=== PATIENT | male | born 1960 | race Hispanic/Latino ===

== ENCOUNTER 2018-11-26 06:20 | Day surgery (SDC) | payer OTHER ==
[2018-11-24 08:08] VITALS: BMI 32.2
[2018-11-26 06:58] LABS: BASO # 0.02 K/mm3 (0.0-2.0); BASO % 0.4 % (0.0-3.0); EOS # 0.1 (0.0-0.7); EOS % 2.4 % (1.5-5.0); GRAN # 2.53 (1.4-6.5); GRAN % 47.6 % (50.0-68.0); HEMOGLOBIN 15.4 g/dL (14.0-18.0); LYMPH # 2.3 (1.2-3.4); LYMPH % 43.2 % (22.0-35.0); MEAN CELL VOLUME 87.3 fl (80.0-105.0); MEAN CORPUSCULAR HEMOGLOBIN 28.7 pg (25.0-35.0); MEAN CORPUSCULAR HGB CONC 32.8 g/dl (31.0-37.0); MEAN PLATELET VOLUME 10.6 fl (7.0-11.0); MONO # 0.3 (0.1-0.6); MONO % 6.4 % (1.0-6.0); RBC 5.37 10^6/uL (3.5-6.1); RED CELL DISTRIBUTION WIDTH 13.7 % (11.5-14.5); WHITE BLOOD COUNT 5.3 10^3/uL (4.5-11.0)
[2018-11-26 07:15] LABS: INR 1.05; PARTIAL THROMBOPLASTIN TIME 38.2 Seconds (26.9-38.3); PROTHROMBIN TIME 11.9 SECONDS (9.4-12.5)
[2018-11-26 07:31] LABS: BLOOD UREA NITROGEN 17 mg/dL (7-21); GFR NON-AFRICAN AMERICAN > 60; HDL CHOLESTEROL 42 mg/dL (29-60)
[2018-11-26 07:32] VITALS: O2SAT 99
[2018-11-26 07:41] LABS: LDL CHOLESTEROL 84 mg/dL (0-129)
[2018-11-26] MEDS ORDERED: Verapamil 2 ML ONE (08:08)
[2018-11-26] MEDS ORDERED: Iodixanol 320 MG/ML 200 ML BOTTLE IV ONE (08:08)
[2018-11-26] MEDS ORDERED: Lidocaine 2% Inj (20ml) ONE (08:08)
[2018-11-26] MEDS ORDERED: Adenosine 90 mg/30mL IV ONE (08:08)
[2018-11-26] MEDS ORDERED: Nitroglycerin 50mg in D5W 50 MG/250 ML BOTTLE IV ONE (08:09)
[2018-11-26] MEDS ORDERED: Midazolam 2 MG/2 ML VIAL ONE ×3 (08:36→08:52)
[2018-11-26] MEDS ORDERED: Sodium Chloride 0.9% 1,000 ML IV SCH (09:15)
[2018-11-26] MEDS ORDERED: A C T ELECTRONICS XX ONE (10:42)
--- NOTE | 2018-11-26 11:10 | CARDCATH ---
PROCEDURE DATE: 11/26/2018 INDICATION: Solomon Bradshaw is a 58-year-old male who presented on 10/24/2018 to [facility] with acute inferior wall VA and underwent angioplasty and stenting with 5 drug-eluting stents, who was noted to have high-grade LAD stenosis, and the patient have intermittent bouts of . He was brought to the medical lab tech instructor for further evaluation and treatment. PROCEDURE PERFORMED: Left heart catheterization with selective left and right coronary angiogram, left ventriculogram, PTCA stenting of mid LAD, 80% stenosis, deployment of 4.0 x 18 Tha drug-eluting stent, regeneration down to 0% CHRISTIAN-3 flow, 6-Maori left distal radial arterial access, wristband for hemostasis. ANGIOGRAPHIC FINDINGS: RCA has patent stent extending from the proximal to the distal segment with no angiographic stenosis noted. Left main large-sized vessel bifurcation to the left anterior descending and left circumflex runs in the AV groove is a large sized vessels, gives off large obtuse marginal branch,free of any obstructive disease, left anterior descending has mid LAD, 80% stenosis gives off 2 medium-sized diagonal branches. TECHNIQUES OF INTERVENTION: After using the above angiographic findings, XB 3.5 guiding catheter was used to engage the left coronary system, left main system. Subsequently, a [place] wire was used to cross the lesion. The lesion was predilated with 3.0 and 3.5 balloon and subsequently stented with 4.0 x 18 Tha drug-eluting stents and post-dilated with 4.0 noncompliant balloon. Final angiogram done showed regeneration down to 0% CHRISTIAN-3 flow. IMPRESSION: Successful percutaneous transluminal coronary angioplasty stenting of mid left anterior descending artery, 80% stenosis, deployment of 4 x 18 [place] drug-eluting stent. RECOMMENDATIONS: Continue the patient on dual antiplatelet therapy one year, guideline-directed therapy for CAD. LVEF is about 50% with mild inferior basal hypokinesis. Keep the patient on guideline-directed therapy for CAD and CHF. Geoff Arce MD
[2018-11-26] MEDS ORDERED: Bacitracin 500 Units/gm Oint Foilpak UD ONE (13:39)
[2018-11-26 14:16] VITALS: RESP 17
--- NOTE | 2018-11-26 15:47 | CARD ---
APPROVED REPORT Date of service: 11/26/2018 EKG Measurement Heart [id number] <Conclusion> Normal sinus rhythm with sinus arrhythmia Inferior infarct, age undetermined Abnormal ECG
[2018-11-26 16:08] VITALS: BP 112/64; PULSE 62; TEMP 97.9
== END 2018-11-26 17:57 | disposition home or self-care (01) ==
LOC: CATH 06:20 → 2RSO 09:33 → CATH 17:57
PROVIDERS: ATTEND Internal Medicine Interventional Cardiology
DX: T82.855A Stenosis of coronary artery stent, initial encounter (principal); I25.119 Atherosclerotic heart disease of native coronary artery with unspecified angina pectoris; I10 Essential (primary) hypertension; I25.2 Old myocardial infarction; E11.9 Type 2 diabetes mellitus without complications; E66.9 Obesity, unspecified; E78.00 Pure hypercholesterolemia, unspecified; Z83.3 Family history of diabetes mellitus; Z82.49 Family history of ischemic heart disease and other diseases of the circulatory system; Z95.5 Presence of coronary angioplasty implant and graft
CPT/HCPCS: 36415; 80048; 80061; 85025; 85175; 85610; 85730; 86850; 86900; 93005; 93458; 99152; 99153; C1725 ×3; C1769 ×2; C1874; C1887; C1894; C9600; J1644 ×2; J2250; J3010; J7030; Q9966